=== PATIENT | female | born 1980 | race Caucasian/White ===

== ENCOUNTER 2023-02-16 16:30 | Outpatient (REF) | payer OTHER, SELFPAY | END 2023-02-16 16:31 | disposition home or self-care (01) | LOC: LAB 16:30 | PROVIDERS: Visit Provider Obstetrics & Gynecology | DX: N92.0 Excessive and frequent menstruation with regular cycle (principal) | CPT/HCPCS: 88305 ==

== ENCOUNTER 2023-02-26 10:03 | Outpatient (OUT) | payer OTHER, SELFPAY | END 2023-02-26 10:04 | disposition home or self-care (01) | LOC: PST 10:04 | DX: Z01.818 Encounter for other preprocedural examination (principal); N93.9 Abnormal uterine and vaginal bleeding, unspecified; R10.2 Pelvic and perineal pain ==

== ENCOUNTER 2023-03-04 10:19 | Day surgery (SDC) | payer OTHER, SELFPAY ==
[2023-02-26 10:23] VITALS: PULSE 99; TEMP 36.8; O2SAT 99; BMI 22.7
[2023-03-04] VITALS (10 sets, daily range): BP systolic 79–136; BP diastolic 53–81; PULSE 57–67; RESP 13–18; TEMP 36.7–36.9; O2SAT 93–99; BMI 23.0
[2023-03-04] MEDS: LACTATED RINGER'S SOLUTION 1,000 ML 50 ML IV (10:58)
[2023-03-04 11:03] LABS: Basophils Absolute Auto 0.1 10^3/uL (0.0-0.1); Basophils Percent Auto 1.2 % (0.2-2.0); Eosinophils Absolute Auto 0.1 10^3/uL (0.0-0.7); Eosinophils Percent Auto 1.1 % (0.9-7.0); Hematocrit 46.9 % (36.0-48.0); Hemoglobin 15.5 g/dL (12.0-16.0); Immature Granulocytes Abs Auto 0.01 10^3/uL (0.00-0.03); Immature Granulocytes Pct Auto 0.1 % (0.0-0.5); Lymphocytes Absolute Auto 2.3 10^3/uL (1.2-3.8); Lymphocytes Percent Auto 30.9 % (20.5-60.0); Mean Corpuscular Hemoglobin 30.7 pg (26.7-34.0); Mean Corpuscular Volume 92.9 fL (81.0-99.0); Monocytes Absolute Auto 0.5 10^3/uL (0.3-0.8); Monocytes Percent Auto 7.1 % (1.7-12.0); Neutrophils Absolute Auto 4.5 10^3/uL (1.4-6.5); Neutrophils Percent Auto 59.6 % (43.0-75.0); Platelet Count 207 10^3/uL (150-450); Red Blood Count 5.05 10^6/uL (4.20-5.40); Red Cell Distribution Width 13.2 % (11.0-15.0); White Blood Count 7.5 10^3/uL (4.0-11.0)
[2023-03-04 11:24] LABS: HCG Quantitative <1 mIU/mL
--- NOTE | 2023-03-04 13:32 | PM.ONB ---
Brief Operative Note Date of procedure: 03/04/23 Pre-op diagnosis: menorrhagia Post-op diagnosis: same Procedure: The patient was taken back to the OR where she was prepped and draped in the normal sterile fashion after being placed in the dorsal lithotomy position, after being placed under general anesthesia without difficulty. The anterior lip was grasped with a single tooth tenaculum. The patient was then gently sounds. The patient was gently sounded using Hegar dilators and the hysteroscope was passed through the cervix into the uterus where both ostia were seen. No gross evidence of polyps, fibroids or malignancy. A weighted speculum was placed in the patient?s vagina, the anterior tip of the cervix was identified and grasped with a single tooth tenaculum. The patient was gently sounded to roughly 10 cm. The cervical length was noted to be 5 cm. The April ablation apparatus was set to approximately 5 in length. This was placed in through the cervix and into the uterus. After the seal was tested, at that time the total ablation of 120 seconds was performed with the April without difficulty. All instruments were removed from the vagina. Anesthesia: LOLA Surgeon: Randal Aguilar Estimated blood loss (mL): 5 Pathology: none sent Condition: stable Disposition: PACU
--- NOTE | 2023-03-04 13:40 | PC.NURSE ---
PATIENT HAD A 16 TRINIDADIAN RED RUBBER CATHETER INSERTED BY THE WRITING RN, WHERE 200 CC OF CLEAR YELLOW URINE WAS DRAINED FROM HER BLADDER. CATHETER WAS REMOVED PRIOR TO START OF SURGERY PER ORDERS.
--- NOTE | 2023-03-04 13:55 | PC.NURSE ---
petty pad clean and dry
[2023-03-04] MEDS: LACTATED RINGER'S SOLUTION 1,000 ML 150 ML IV (14:10)
--- NOTE | 2023-03-04 14:40 | PC.NURSE ---
Peripad dry; denies urge to void at this time; drinking water and coffee
--- NOTE | 2023-03-04 15:14 | PC.NURSE ---
Up to bathroom and voided pink tinged urine without difficulty; peripad dry
== END 2023-03-04 15:24 | disposition home or self-care (01) ==
PROVIDERS: Visit Provider Obstetrics & Gynecology
PROC: (CPT 58563; principal; 2023-03-04 11:45)
DX: N92.0 Excessive and frequent menstruation with regular cycle (principal); N93.9 Abnormal uterine and vaginal bleeding, unspecified; R10.2 Pelvic and perineal pain; Z98.51 Tubal ligation status; F17.210 Nicotine dependence, cigarettes, uncomplicated
CPT/HCPCS: 58563; 36415; 84702; 85025; J2704

== ENCOUNTER 2024-01-15 07:58 | Outpatient (OUT) | payer OTHER, SELFPAY ==
--- NOTE | 2024-01-15 08:00 | MM_ITS ---
Patient Name: RASHI VILLAGRAN MR#: [id number] : 1980 Exam Date: 01/15/2024 Ordering Doctor: DR Randal Aguilar . RADIOLOGY REPORT PROCEDURE: MM TOMOSYNTHESIS SCREENING BI COMPARISON: MG MAMM SCREEN 3D DEAN CAD, 01/13/2023. INDICATIONS: Screening Calculator Name NCI Breast Cancer Risk Assessment Tool 5 Year Breast Cancer Risk 0.90% Lifetime Breast Cancer Risk 13.40% Personal Breast Cancer No Personal Ovarian Cancer No Treatments None Family Cancers None LOCATION: [facility] BREAST COMPOSITION: The breasts are extremely dense, which lowers the sensitivity of mammography. FINDINGS: DIAGNOSTIC CATEGORY 2--BENIGN FINDING. NO CHANGE FROM COMPARISON. Scattered benign-appearing calcifications are present. Scattered benign-appearing lymph nodes are present. This exam includes additional mammographic views for implant evaluation and shows no visible implant abnormality. RIGHT BREAST: No significant suspicious finding. LEFT BREAST: No significant suspicious finding. RECOMMENDATIONS: ROUTINE MAMMOGRAM AND CLINICAL EVALUATION IN 12 MONTHS. PLEASE NOTE: A NORMAL MAMMOGRAM DOES NOT EXCLUDE THE POSSIBILITY OF BREAST CANCER. A CLINICALLY SUSPICIOUS PALPABLE LUMP SHOULD BE BIOPSIED. Dictated by: Karthik Sauer MD on 01/15/2024 at 09:28 Approved by: Karthik Sauer MD on 01/15/2024 at 09:29
--- OUTSIDE RECORDS SUMMARY | 2024-01-15 08:01 | XMS_ITS | CCD ---
Author Organization [facility] Care Team Providers Care Bioinformatics Support Specialist Name Role Phone ADDIS ., DR DENIS Consulting Unavailabl e KARASIK ., DR DENIS Attending Unavailabl e KARASIK ., DR DENIS Admitting Unavailabl e KARASIHarini ., DR DENIS Attending Unavailabl e KARASIK ., DR DENIS Admitting Unavailabl e KARASIHarini ., DR DENIS Consulting Unavailabl e TWYLA DIETZ Attending Unavailable Problems Problem Classification Problem Date Documented Date Episodic/Chronic Immunizations and screening for infectious disease (1 source) Encounter for screening for human papillomavirus (HPV); Translations: [ENC SCREENING HUMAN PAPILLOMAVIRUS] Onset: 01-01-2023 Episodic Other screening for suspected conditions (not mental disorders or infectious disease) (4 sources) Encounter for screening for malignant neoplasm of cervix; Translations: [ENC SCREENING MALIG NEOPLASM CERV] Onset: 12-29-2022 Episodic Results Test Name Value Interpretation Reference Range Facil ity MG MAMM SCREEN 3D DEAN CADon 01-13-2023 MG MAMM SCREEN 3D DEAN CAD Patient: RASHI VILLAGRAN Exam Date: 01/13/2023 : 1980 Gender:F Ordering : DR JILLIAN LOVE . Admission #: [id number] Family : Order #: [id number] CLICK HERE TO VIEW EXAM RADIOLOGY REPORT PROCEDURE: MAMMOGRAM SCREENING 3D BILATERAL CAD COMPARISON: None. INDICATIONS: Screening mammography Calculator Name NCI Breast Cancer Risk Assessment Tool 5 Year Breast Cancer Risk 0.80% Lifetime Breast Cancer Risk 13.50% Personal Breast Cancer No Personal Ovarian Cancer No Treatments None Family Cancers None LOCATION: [facility] BREAST COMPOSITION: Extremely dense, which lowers the sensitivity of mammography. FINDINGS: DIAGNOSTIC CATEGORY 1--NEGATIVE. RIGHT BREAST: No significant suspicious finding. This exam includes additional mammographic views for implant evaluation and shows no visible implant abnormality. LEFT BREAST: No significant suspicious finding. This exam includes additional mammographic views for implant evaluation and shows no visible implant abnormality. RECOMMENDATIONS: ROUTINE MAMMOGRAM AND CLINICAL EVALUATION IN 12 MONTHS. PLEASE NOTE: A NORMAL MAMMOGRAM DOES NOT EXCLUDE THE POSSIBILITY OF BREAST CANCER. A CLINICALLY SUSPICIOUS PALPABLE LUMP SHOULD BE BIOPSIED. Dictated by: Ken Calloway M.D. on 01/14/2023 at 12:12 Approved by: Ken Calloway M.D. on 01/14/2023 at 12:14 Normal [facility] PAP ACOG PANEL 2: 30 to 65on 01-06-2023 . . Normal [facility] Comment on above: Result Comment: Performed at: WB Performed By: #### [id number] #### [facility] [address] [address] [address] Loida Barry Age Gdln ACOG Testing 30-65 Normal [facility] Comment on above: Performed By: #### [id number] #### [facility] [address] [address] [address] Loida Barry DIAGNOSIS: Comment Normal [facility] Comment on above: Result Comment: NEGATIVE FOR INTRAEPITHE LIAL LESION OR MALIGNANCY. SHIFT IN KATY SUGGESTIVE OF BACTERIAL VAGINOSIS. THIS SPECIMEN WAS RESCREENED PART OF OUR LOGISTICS TECH PROGRAM. Performed at: WB Performed By: #### [id number] #### [facility] [address] [address] [address] Loida Barry HPV Aptima Negative Normal Negative [facility] Comment on above: Result Comment: This nucleic acid amplif ication test detects fourteen high-risk HPV types (16,18,31,33,35,39,45,51,52,56,58,59,66,68) without differentiation. Performed at: =G Performed By: #### [id number] #### [facility] [address] [address] [address] Loida Barry HPV Genotype Reflex Comment Normal [facility] Comment on above: Result Comment: Criteria not met, HPV Ge notype not performed. Performed at: WB Performed By: #### [id number] #### [facility] [address] [place] [address] Dr. Loida Barry Methodology: Comment Normal [facility] Comment on above: Result Comment: This liquid based ThinPr ep(R) pap test was screened with the use of an image guided system. Performed at: WB Performed By: #### [id number] #### [facility] [address] [address] [address] Loida Barry Note: Comment Normal [facility] Comment on above: Result Comment: The Pap smear is a scree arcenio test designed to aid in the detection of premalignant and malignant conditions of the uterine cervix. It is not a diagnostic procedure and should not be used as the sole means of detecting cervical cancer. Both false-positive and false-negative reports do occur. . Performed at: WB Performed By: #### [id number] #### [facility] [address] [place] [address] Dr. Loida Barry Performed by: Comment Normal [facility] Comment on above: Result Comment: Teresita Sauer Cytotechnol ogist (ASCP) Performed at: WB Performed By: #### [id number] #### [facility] [address] [address] [address] Loida Barry QC reviewed by: Comment Normal [facility] Comment on above: Result Comment: Carlotta Monique Cytotechn ologist (ASCP) Performed at: WB Performed By: #### [id number] #### [facility] [address] [place] [address] Dr. Loida Barry Specimen adequacy: Comment Normal [facility] Comment on above: Result Comment: Satisfactory for evaluat ion. Endocervical and/or squamous metaplastic cells (endocervical component) are present. Performed at: WB Performed By: #### [id number] #### [facility] [address] [place] [address] Dr. Loida Barry Encounters Encounter Date Encounter Type Care Provider Facility Start: 07-29-2023 End: 07-29-2023 ambulatory TWYLA DIETZ Not Available Start: 01-13-2023 End: 01-14-[address] CIRA MANCINI . Facility: Start: 12-29-2022 End: 12-29-[address] CIRA MANCINI . Facility:[facility] Payers Date Payer Category Payer Unknown [id number] 1980 Unknown [id number] 1980 Unknown [id number] 1958 Unknown [id number] Summary Purpose Family History No Family History Records FoundNo Family History Records Found Advance Directives No Advanced Directives Records FoundNo Advanced Directives Records Found Additional Source Comments INFORMATION SOURCE (unrecogn ized section and content) DATE CREATED AUTHOR 01/14/2023 [facility] DATE CREATED AUTHOR JLUIS DELACRUZ 07/31/2023 [facility] [employer] EPIC FOR RECORDS PERTAINING TO PATIENTS WHO ARE OR HAVE BEEN ENROLLED IN A CHEMICAL DEPENDENCY/SUBSTANCEABUSE PROGRAM, SOME INFORMATION MAY BE OMITTED. This clinical summary was aggregated from multiple sources. Caution should be exercised in using it in the provision of clinical care. This summary normalizes information from multiple sources, and as a consequence, information in this document may materially change the coding, format and clinical context of patient data. In addition, data may be omitted in some cases. CLINICAL DECISIONS SHOULD BE BASED ON THE PRIMARY CLINICAL RECORDS. [facility] [employer] [facility]. provides no warranty or guarantee of the accuracy or completeness of information in this document.
== END 2024-01-15 07:59 | disposition home or self-care (01) ==
LOC: MAMMO 07:58
PROVIDERS: Visit Provider Obstetrics & Gynecology
DX: Z12.31 Encounter for screening mammogram for malignant neoplasm of breast (principal)
CPT/HCPCS: 77063; 77067

== ENCOUNTER 2025-01-17 15:52 | Outpatient (OUT) | payer OTHER, SELFPAY ==
--- OUTSIDE RECORDS SUMMARY | 2025-01-17 16:00 | XMS_ITS | CCD ---
Author Organization [facility] Care Team Providers Care Registered Phlebotomist Part Time Name Role Phone ADDIS ., DR DENIS Consulting Unavailabl e KARASIK ., DR DENIS Attending Unavailabl e KARASIK ., DR DENIS Admitting Unavailabl e KARASIK ., DR DENIS Attending Unavailabl e KARASIK ., DR DENIS Admitting Unavailabl e KARLUZK ., DR DENIS Consulting Unavailabl jeannette Will MD, Sandy Ledbetter Primary Care Provider Terrence Marion MD Unavailable PAMELLA SANTANA Attending Unavailable DOROTEO RANDALL Attending Unavailable DOROTEO RANDALL Attending Unavailable Medications Current Medications Medication Drug Class(es) Dates Sig (Normalized) Sig (Original) doxycycline monohydrate 100 mg oral capsule (1 source) Tetracycline-clas s Drug Start: 09-14-2024 End: 09-21-2024 doxycycline (Monodox) 100 MG capsule Indications: Epidermal cyst Take 1 capsule (100 mg) by mouth in the morning and 1 capsule (100 mg) before bedtime. Do all this for 7 days. Take with at least 8 ounces (large glass) of water, do not lie down for 30 minutes after. 14 capsule 09/14/2024 09/21/2024 Active tretinoin 0.5 mg/ml topical lotion (10 sources) Retinoid Start: 07-12-2024 Tretinoin (Altreno) 0.05 % lotion Indications: Rhytides Apply thin layer to face at bedtime 45 g 11 07/12/2024 Active Start: 06-07-2024 tretinoin (Ret in-A) 0.025 % cream Indications: Rhytides Apply to face, once daily at evening/night time, 30 day supply 45 g 11 06/07/2024 Active Completed/Discontinued Medications Medication Drug Class(es) Dates Sig (Normalized) Sig (Original) drospirenone 4 mg oral tablet (3 sources) Progestin Start: 12-29-2022 End: 06-07-2024 Drospirenone (Slynd) 4 MG tablet 1 (one) time each day at the same time. 12/29/2022 06/07/2024 Discontinued (Therapy completed) Problems Active Problems Problem Classification Problem Date Documented Date Episodic/Chronic Anxiety disorders (7 sources) Anxiety; Translations: [Other specified anxiety disorders] Onset: 02-13-2023 02-13-2023 Chronic Immunizations and screening for infectious disease (1 source) Encounter for screening for human papillomavirus (HPV); Translations: [ENC SCREENING HUMAN PAPILLOMAVIRUS] Onset: 01-01-2023 Episodic Menstrual disorders (7 sources) Menorrhagia; Translations: [Excessive and frequent menstruation with regular cycle] Onset: 02-13-2023 02-13-2023 Chronic Other and unspecified benign neoplasm (2 sources) Melanocytic nevus of trunk; Translations: [Melanocytic nevi of trunk] 07-12-2024 Episodic Other and unspecified benign neoplasm (2 sources) Melanocytic nevi of other parts of face; Translations: [Benign neoplasm of skin of other and unspecified parts of face] 07-12-2024 Episodic Other inflammatory condition of skin (1 source) Erythema of skin; Translations: [Other specified erythematous conditions] 10-05-2024 Episodic Other screening for suspected conditions (not mental disorders or infectious disease) (4 sources) Encounter for screening for malignant neoplasm of cervix; Translations: [ENC SCREENING MALIG NEOPLASM CERV] Onset: 12-29-2022 Episodic Other skin disorders (3 sources) Epidermoid cyst; Translations: [Epidermal cyst] 06-07-2024 Episodic Other skin disorders (4 sources) Wrinkled skin; Translations: [Other specified disorders of the skin and subcutaneous tissue] 06-07-2024 Episodic Other skin disorders (2 sources) Seborrheic keratosis; Translations: [Other seborrheic keratosis] 07-12-2024 Episodic Other skin disorders (2 sources) Lentiginosis; Translations: [Other melanin hyperpigmentation] 07-12-2024 Episodic Other skin disorders (1 source) Epidermoid cyst of skin; Translations: [Epidermal cyst] 09-14-2024 Episodic Substance-related disorders (7 sources) Smoker; Translations: [Nicotine dependence, unspecified, uncomplicated] Onset: 02-13-2023 02-13-2023 Chronic Past or Other Problems Problem Classification Problem Date Documented Date Episodic/Chronic Other female genital disorders (7 sources) Vaginal odor; Translations: [Other specified noninflammatory disorders of vagina] Onset: 02-13-2023 02-13-2023 Episodic Results Test Name Value Interpretation Reference Range Facil ity MG MAMM SCREEN 3D DEAN CADon 01-13-2023 MG MAMM SCREEN 3D DEAN CAD Patient: RASHI BRODERICK Exam Date: 01/13/2023 : 1980 Gender:F Ordering : DR JILLIAN LOVE . Admission #: [id number] Family : Order #: [id number] CLICK HERE TO VIEW EXAM RADIOLOGY REPORT PROCEDURE: MAMMOGRAM SCREENING 3D BILATERAL CAD COMPARISON: None. INDICATIONS: Screening mammography Calculator Name NCI Breast Cancer Risk Assessment Tool 5 Year Breast Cancer Risk 0.80% Lifetime Breast Cancer Risk 13.50% Personal Breast Cancer No Personal Ovarian Cancer No Treatments None Family Cancers None LOCATION: [facility] BREAST COMPOSITION: Extremely dense, which lowers the [...] Calloway M.D. on 01/14/2023 at 12:[address] [facility] PAP ACOG PANEL 2: 30 to 65on 01-06-2023 . . Normal [facility] Comment on above: Result Comment: Performed at: WB Performed By: #### [id number] #### [facility] [address] [place] [address] Dr. Loida Barry Age Gdln ACOG Testing 30-[address] [facility] Comment on above: Performed By: #### [id number] #### [facility] [address] [place] [address] Dr. Loida Barry DIAGNOSIS: Comment Normal [facility] Comment on above: Result Comment: NEGATIVE FOR INTRAEPITHE LIAL LESION OR MALIGNANCY. SHIFT IN KATY SUGGESTIVE OF BACTERIAL VAGINOSIS. THIS SPECIMEN WAS RESCREENED PART OF OUR JUNIOR QA ANALYST PROGRAM. Performed at: WB Performed By: #### [id number] #### [facility] [address] [place] [address] Dr. Loida Barry HPV Aptima Negative Normal Negative [facility] Comment on above: Result Comment: This nucleic acid amplif ication test detects fourteen high-risk HPV types (16,18,31,33,35,39,45,51,52,56,58,59,66,68) without differentiation. Performed at: =G Performed By: #### [id number] #### [facility] [address] [place] [address] Dr. Loida Barry HPV Genotype Reflex Comment Normal [facility] Comment on above: Result Comment: Criteria not met, HPV Ge notype not performed. Performed at: WB Performed By: #### [id number] #### [facility] [address] [place] [address] Dr. Loida Barry Methodology: Comment Normal [facility] Comment on above: Result Comment: This liquid based ThinPr ep(R) pap test was screened with the use of an image guided system. Performed at: WB Performed By: #### [id number] #### [facility] [address] [place] [address] Dr. Loida Barry Note: Comment Normal [facility] Comment on above: Result Comment: The Pap smear is a scree arceino test designed to aid in the detection of premalignant and malignant conditions of the uterine cervix. It is not a diagnostic procedure and should not be used as the sole means of detecting cervical cancer. Both false-positive and false-negative reports do occur. . Performed at: WB Performed By: #### [id number] #### [facility] [address] [address] [address] Loida Barry Performed by: Comment Normal [facility] Comment on above: Result Comment: Teresita Sauer Cytotechnol ogist (ASCP) Performed at: WB Performed By: #### [id number] #### [facility] [address] [address] [address] Loida Barry QC reviewed by: Comment Normal [facility] Comment on above: Result Comment: Carlotta Monique Cytotechn ologist (ASCP) Performed at: WB Performed By: #### [id number] #### [facility] [address] [address] [address] Loida Barry Specimen adequacy: Comment Normal [facility] Comment on above: Result Comment: Satisfactory for evaluat ion. Endocervical and/or squamous metaplastic cells (endocervical component) are present. Performed at: WB Performed By: #### [id number] #### [facility] [address] [address] [address] Loida Barry Encounters Encounter Date Encounter Type Care Provider Facility Start: 10-05-2024 End: 10-05-2024 Office outpatient visit 10 minutes Pamella Santana MD Work Phone: [facility] Comment on above: Epidermal inclusion cyst (Primary Dx); Other specified erythematous conditions Start: 10-05-2024 End: 10-05-2024 ambulatory PAMELLA SANTANA Not Available Start: 09-14-2024 End: 09-14-2024 Orders Only Doroteo CHAVEZ Work Phone: [facility] Comment on above: Epidermal cyst (Prim mikaela Dx) Start: 07-12-2024 End: 07-12-2024 Office outpatient visit 15 minutes Doroteo CHAVEZ Work Phone: [facility] Comment on above: Melanocytic nevus of trunk (Primary Dx); Melanocytic nevus of face, other location; Seborrheic keratosis; Lentigines; Rhytides Start: 07-12-2024 End: 07-12-2024 ambulatory DOROTEO RANDALL Not Available Start: 06-07-2024 End: 06-07-2024 Office outpatient new 30 minutes Doroteo CHAVEZ Work Phone: [facility] Comment on above: Epidermal inclusion cyst (Primary Dx); Rhytides Start: 06-07-2024 End: 06-07-2024 ambulatory DOROTEO RANDALL Not Available Start: 06-07-2024 End: 06-07-2024 Bamboo flowsheet Doroteo CHAVEZ Work Phone: [facility] Start: 06-07-2024 End: 06-07-2024 Bamboo flowsheet Doroteo CHAVEZ Work Phone: [facility] Start: 01-13-2023 End: 01-14-[address] CIRA MANCINI . Facility: Start: 12-29-2022 End: 12-29-[address] CIRA MANCINI . Facility: Procedures Date Procedure Procedure Detail Performing Clinician Start: 01-15-2024 Mammography Doroteo CHAVEZ Work Phone: Start: 06-26-2021 Microscopic observat ion [Identifier] in Cervix by Cyto stain Doroteo CHAVEZ Work Phone: Plan of Treatment Date Care Activity Detail Author Start: 06-26-2026 Screening for malign ant neoplasm of cervix [facility] Start: 07-12-2025 End: 07-12-2025 Patient encounter procedure 07/12/2025 4:10 PM EST Office Visit [facility] [address] [place] [address] Doroteo Randall PA [address] [place] [address] [facility] Start: 01-14-2025 Screening for malign ant neoplasm of breast Mammogram [facility] Start: 10-05-2024 End: 10-05-2024 Patient encounter procedure 10/05/2024 3:30 PM EST Procedure Visit [facility] [address] [place] [address] Pamella Santana MD [address] [place] [address] [facility] Start: 07-12-2024 End: 07-12-2024 Patient encounter procedure 07/12/2024 3:40 PM EST Office Visit [facility] [address] [place] [address] Doroteo Randall PA [address] [place] [address] [facility] Start: 06-07-2024 End: 06-07-2024 Patient encounter procedure 06/07/2024 3:10 PM EDT Office Visit [facility] [address] [place] [address] Doroteo Randall PA [address] [place] [address] Arrived [facility] Comment on above: Arrived Start: 05-01-2024 Influenza vaccination Influenza Vacc ine (#1) [facility] Payers Date Payer Category Payer Private Health Insurance [employer] [id number] 2022 Unknown [employer] [id number] 2022-Present [address] [place] [address] [id number] 1980 Unknown [id number] 1980 Unknown [id number] 1980 Unknown [id number] 1980 Unknown [id number] 1980 Unknown [id number] 1959 Unknown [id number] Social History Date Type Detail Facility Start: 02-16-2023 Tobacco smoking status AKIS Oc casional tobacco smoker [facility] History of tobacco use Cigarette Smoker [facility] Start: 07-29-2023 End: 10-05-2024 Alcoholic beverage intake Current drinker of alcohol (finding) [facility] Start: 07-29-2023 End: 09-14-2024 History of Social function [facility] Start: 07-29-2023 End: 09-14-2024 Humiliation, Afraid, Rape, and Kick questionnaire [HARK] [facility] Within the last year , have you been afraid of your partner or ex-partner? No [facility] Are you now , , , , never or living with a partner? [facility] How often to you hav e a drink containing alcohol? 2-4 times a month [facility] How many standard dr inks containing alcohol do you have on a typical day? 3 or 4 [facility] How often do you hav e 6 or more drinks on 1 occasion? Never [facility] How hard is it for y ou to pay for the very basics like food, housing, medical care, and heating Not very hard [facility] Do you feel stress - tense, restless, nervous, or anxious, or unable to sleep at night because your mind is troubled all the time - these days [OSQ] Only a little [facility] (I/We) worried wheth er (my/our) food would run out before (I/we) got money to buy more. Never true [facility] In the past 12 month s, has lack of transportation kept you from medical appointments or from getting medications? No [facility] Start: 02-16-2023 Alcohol Comment 1 or 2 drinks, 2 to 4 times a month [facility] Start: 1980 Sex assigned at Female [facility] Start: 02-09-2023 Gender identity Identifies as female gender (finding) [facility] History of Present illness Narrative 10-05-2024 Pamella Santana MD - 10/05/2024 3:30 PM EST Note Date & Type Note Facility 10-05-2024 History of Presen t illness Narrative Images from the original note were not included. Follow up Diagnosis: EIC Location: Left upper back Last visit: 05/2024 Status: flared a few weeks ago, was draining and very painful. Our office phoned in course of doxycyline. Finished doxycyline 100 mg bid x 7 days, states it is much better now, less red and not painful. Patient was scheduled for excision today. All pertinent medical history, medications, and allergies were reviewed. General Exam: alert, oriented to person, place, and time, normal affect, well appearing Unaccompanied A focused exam completed based on patient reported problems, see below: 1. Epidermal inclusion cyst Left Upper Back Small subcutaneous barely palpable nodule with resolving erythema. Patient was counseled regarding cysts. Although benign, cysts often slowly enlarge and can occasionally become inflamed. Discussed the only way to definitively diagnose the lesion would be to have it removed and tested. Discussed treatment options including observation vs. excision. Due to recent inflammation and marked decrease in size (area may have scarred down), recommend observation. Patient elected for observation. Notify office if lesion is enlarging or becomes symptomatic and we will schedule excision. 2. Other specified erythematous conditions Left Upper Back Next Visit: prn for any new/changing lesions documented in this encounter [facility] History of Present illness Narrative 07-12-2024 KATHY Kerr - 07/12/2024 3:40 PM EST Note Date & Type Note Facility 07-12-2024 History of Presen t illness Narrative Skin Check Location: Patient requests a full body skin examination Dermatologic history: no history of skin cancer, no history of atypical moles, no family history of melanoma Last visit: 06/07/2024 Established patient All pertinent medical history, medications, and allergies were reviewed. General Exam: alert, oriented to person, place, and time, normal affect, well appearing Unaccompanied Scalp, Examined , exam limited by hair Right leg Examined Head, Face Examined , Patient declined to remove makeup Left leg Examined Neck Examined Right foot Examined Chest Examined Left foot Examined Back Examined Buttocks Examined Abdomen Examined Digits,nails: Examined Right arm Examined Patient wearing nail greek, Denies dark streaks under finger nails, Denies dark streaks on toenails Left arm Examined Lymphatics: Not examined Hands Examined 1. Melanocytic nevus of trunk Trunk Scattered benign appearing, regular brown to light brown melanocytic papules and macules with similar morphology Counseled regarding these benign growths. Rarely, a nevus can develop into malignant melanoma, so any changing nevi should be promptly re-evaluated. 2. Melanocytic nevus of face, other location Head - Anterior (Face) Scattered benign appearing, regular brown to light brown melanocytic papules and macules with similar morphology Counseled regarding these benign growths. Rarely, a nevus can develop into malignant melanoma, so any changing nevi should be promptly re-evaluated. 3. Seborrheic keratosis Stuck on verrucous, mahoney-brown papules and plaques. Patient was counseled regarding these benign growths. Removal is normally not necessary, but they may be removed if they are symptomatic or for cosmetic reasons. 4. Lentigines (2) Generalized, Head - Anterior (Face) Scattered mahoney macules in sun-exposed areas. The patient was informed that lentigines are benign pigmented lesions that occur on sun-exposed and sun-damaged skin. No treatment is necessary. Recommended regular use of broad spectrum sunscreen SPF 30 or higher 5. Rhytides Head - Anterior (Face) Wrinkles of the skin related to aging. Patient has used OTC RetinA creams with no improvement. Switched patient to Altreno Lotion once at night time after washing face with a gentle cleanser. Apply a pea-sized amount of medicine over the whole face and apply moisturizer after applying the Tretinoin. Return to clinic if not satisfied with improvement. Tretinoin (Altreno) 0.05 % lotion - Head - Anterior (Face) Apply thin layer to face at bedtime Related Medications tretinoin (Retin-A) 0.025 % cream Apply to face, once daily at evening/night time, 30 day supply Next Visit: 1 year, skin check documented in this encounter [facility] History of Present illness Narrative 06-07-2024 KATHY Kerr - 06/07/2024 3:10 PM EDT Note Date & Type Note Facility 06-07-2024 History of Presen t illness Narrative Lesions: Location: left upper back Duration: months Quality: painful Modifying factors: aggravated by squeezing Associated symptoms: draining, enlarged Treatments: squeezed it and white stuff came out New patient All pertinent medical history, medications, and allergies were reviewed. General Exam: alert, oriented to person, place, and time, normal affect, well appearing Unaccompanied A focused exam completed based on patient reported problems, see below: 1. Epidermal inclusion cyst Left Upper Back 1 x 1 cm erythematous, subcutaneous nodule Patient was counseled regarding cysts. Although benign, cysts often slowly enlarge and can occasionally become inflamed. Discussed the only way to definitively diagnose the lesion would be to have it removed and tested. Discussed treatment options including observation vs. excision. Patient elected for excision. Reviewed procedure and what to expect. Patient informed that the office will contact them to schedule a 30 minute excision once an estimate of their co-pay is determined. She is aware that this office is booking out until August for cyst excisions. 2. Rhytides Head - Anterior (Face) Wrinkles of the skin related to aging. Patient has used OTC RetinA creams with no improvement. Start Tretinoin 0.025% cream once at night time after washing face with a gentle cleanser. Apply a pea-sized amount of tretinoin over the whole face and apply moisturizer after applying the Tretinoin. Return to clinic if not satisfied with improvement. tretinoin (Retin-A) 0.025 % cream - Head - Anterior (Face) Apply to face, once daily at evening/night time, 30 day supply Next Visit: prn for any new/changing lesions, portia skin check documented in this encounter [facility] Evaluation note Note Date & Type Note Facility Evaluation note Diagnosis Epidermal inclusion cyst- Primary Sebaceous cyst Rhytides documented in this encounter [facility] Evaluation note Note Date & Type Note Facility Evaluation note Diagnosis Melanocytic nevus of trunk- Primary Benign neoplasm of skin of trunk, except scrotum Melanocytic nevus of face, other location Seborrheic keratosis Lentigines Rhytides documented in this encounter [facility] Evaluation note Note Date & Type Note Facility Evaluation note Diagnosis Epidermal cyst- Primary Sebaceous cyst documented in this encounter [facility] Evaluation note Note Date & Type Note Facility Evaluation note Diagnosis Epidermal inclusion cyst- Primary Sebaceous cyst Other specified erythematous conditions documented in this encounter [facility] Summary Purpose Family History No Family History Records FoundNo Family History Records Found Advance Directives No Advanced Directives Records FoundNo Advanced Directives Records Found Additional Source Comments INFORMATION SOURCE (unrecogn ized section and content) DATE CREATED AUTHOR 01/14/2023 [facility] DATE CREATED AUTHOR AUTHOR'S ORGANIZ ATION 10/08/2024 [facility] Care Teams (unrecognized sec tion and content) Registered Phlebotomist Part Time Relationship Specialty Start Date End Date Sandy Will MD [address] [facility] [address] [place] [address] PCP - General Family Medicine 02/16/23 Terrence Marion MD [address] [facility] [address] [place] [address] PCP - Medical [facility] 11/29/17 08/30/99 Registered Phlebotomist Part Time Relationship Specialty Start Date End Date Sandy Will MD [address] [facility] [address] [place] [address] PCP - General Family Medicine 02/16/23 Terrence Marion MD [address] [place] [address] PCP - Medical [facility] 11/29/17 08/30/99 Registered Phlebotomist Part Time Relationship Specialty Start Date End Date Sandy Will MD [address] [place] [address] PCP - General Family Medicine 02/16/23 Terrence Marion MD [address] [place] [address] PCP - Medical [facility] 11/29/17 08/30/99 Registered Phlebotomist Part Time Relationship Specialty Start Date End Date Sandy Will MD [address] [place] [address] PCP - General Family [facility] 02/16/23 Terrence Marion MD [address] [place] [address] PCP - Medical [facility] 11/29/17 08/30/99 Registered Phlebotomist Part Time Relationship Specialty Start Date End Date Sandy Will MD [address] [place] [address] PCP - General Family Medicine 02/16/23 Terrence Marion MD [address] [place] [address] PCP - Medical [facility] 11/29/17 08/30/99 Reason for Visit (unrecogniz ed section and content) Reason Comments Suspicious Skin Lesion Reason Comments Skin Check Reason Comments Follow-up FOR RECORDS PERTAINING TO PATIENTS WHO ARE [...] BE BASED ON THE PRIMARY CLINICAL RECORDS. [facility] provides no warranty or guarantee of the accuracy or completeness of information in this document.
--- NOTE | 2025-01-17 16:22 | MM_ITS ---
Patient Name: RASHI VILLAGRAN MR#: [id number] : 1980 Exam Date: 01/17/2025 Ordering Doctor: DR JILLIAN LOVE . RADIOLOGY REPORT PROCEDURE: MM TOMOSYNTHESIS SCREENING BI COMPARISON: MM TOMOSYNTHESIS SCREENING BI, 01/15/2024. MG MAMM SCREEN 3D DEAN CAD, 01/13/2023. INDICATIONS: Screening Calculator Name NCI Breast Cancer Risk Assessment Tool 5 Year Breast Cancer Risk 1.00% Lifetime Breast Cancer Risk 13.20% Personal Breast Cancer No Personal Ovarian Cancer No Treatments None Family Cancers None LOCATION: [facility] BREAST COMPOSITION: The breasts are extremely dense, which lowers the sensitivity of mammography. FINDINGS: DIAGNOSTIC CATEGORY 1--NEGATIVE. RIGHT BREAST: No significant suspicious finding. A breast implant is present. The implant is intact. LEFT BREAST: No significant suspicious finding. The breast implant is present. The implant is intact. RECOMMENDATIONS: ROUTINE MAMMOGRAM AND CLINICAL EVALUATION IN 12 MONTHS. PLEASE NOTE: A NORMAL MAMMOGRAM DOES NOT EXCLUDE THE POSSIBILITY OF BREAST CANCER. A CLINICALLY SUSPICIOUS PALPABLE LUMP SHOULD BE BIOPSIED. Dictated by: Forrest Carter MD on 01/17/2025 at 16:38 Approved by: Forrest Carter MD on 01/17/2025 at 16:41
== END 2025-01-17 15:53 | disposition home or self-care (01) ==
PROVIDERS: Visit Provider Obstetrics & Gynecology
DX: Z12.31 Encounter for screening mammogram for malignant neoplasm of breast (principal)
CPT/HCPCS: 77063; 77067